=== PATIENT | female | born 1990 | race African-American/Black ===

== ENCOUNTER 2018-05-29 13:22 | Emergency (ER) | payer MEDICAID ==
[2018-05-29 13:58] LABS: URINE BLOOD (Dip) POC 3+ (NEGATIVE); URINE GLUCOSE (Dip) POC Negative (NEGATIVE); URINE KETONES (Dip) POC Trace (NEGATIVE); URINE LEUKOCYTE EST (Dip) POC 1+ (NEGATIVE); URINE NITRITE (Dip) POC Negative (NEGATIVE); URINE TOTAL PROTEIN POC 2+ (NEGATIVE)
== END 2018-05-29 14:26 | disposition home or self-care (01) ==
LOC: FTE 13:22
DX: R30.0 Dysuria (principal)
CPT/HCPCS: 81003; 81025; 99283